=== PATIENT | female | born 1965 ===

== ENCOUNTER → 2019-06-13 | Outpatient (CLI) | payer OTHER | END | disposition home or self-care (01) | LOC: MRI 12:51 | DX: M06.851 Other specified rheumatoid arthritis, right hip (principal); M06.852 Other specified rheumatoid arthritis, left hip; M19.91 Primary osteoarthritis, unspecified site | CPT/HCPCS: 72195 ==

== ENCOUNTER 2023-05-05 14:33 | Outpatient (CLI) | payer OTHER | END 2023-05-05 15:00 | disposition home or self-care (01) | LOC: MRI 14:33 | PROVIDERS: ATTEND Internal Medicine Rheumatology | DX: M05.69 Rheumatoid arthritis of multiple sites with involvement of other organs and systems (principal); M19.90 Unspecified osteoarthritis, unspecified site; M76.02 Gluteal tendinitis, left hip; M17.0 Bilateral primary osteoarthritis of knee | CPT/HCPCS: 73721 ==